=== PATIENT | male | born 1975 | race Caucasian/White ===

== ENCOUNTER 2016-08-23 23:46 | Emergency (ER) | payer SELFPAY ==
[~2016-08-23] VITALS: Ht 182.9 cm; Wt 99.3 kg
[2016-08-24] MEDS ORDERED: ONDANSETRON 2MG/ML, 2ML ONE (01:13)
[2016-08-24] MEDS ORDERED: KETOROLAC 30 MG/1 ML ONE (01:13)
[2016-08-24] MEDS ORDERED: MORPHINE SULFATE 4 MG/ML, 1ML ONE ×3 (01:13→02:40)
[2016-08-24] MEDS: MORPHINE SULFATE 4 MG/ML, 1ML IVPush PRN ×2 (01:20→02:04)
[2016-08-24] MEDS ORDERED: GABA300C PO (01:27)
[2016-08-24] MEDS ORDERED: ALPR0.25 PO (01:27)
[2016-08-24] MEDS ORDERED: ACET-709 PO (01:27)
[2016-08-24] MEDS ORDERED: VENL150C PO (01:27)
[2016-08-24] MEDS ORDERED: SODIUM CHLORIDE 0.9% 1,000ML IVBOLUS ONE (01:30)
[2016-08-24] MEDS ORDERED: SODIUM CHLORIDE FLUSH 10ML SYR IVF ONE (01:30)
[2016-08-24] MEDS ORDERED: KETOROLAC 30 MG/1 ML IVPush ONE (01:30)
[2016-08-24] MEDS ORDERED: ONDANSETRON 2MG/ML, 2ML IVPush ONE (01:30)
[2016-08-24 02:47] LABS: BLOOD UREA NITROGEN 12 mg/dL (7-18)
[2016-08-24 02:52] LABS: ASPARTATE AMINO TRANSFERASE 39 U/L (15-37)
[2016-08-24] MEDS ORDERED: MORPHINE SULFATE 4 MG/ML, 1ML IVPush ONE (03:00)
[2016-08-24] MEDS ORDERED: MAALOX/HYOSCYAMINE/LIDOCAINE 45 ML BOTTLE ONE (03:22)
[2016-08-24] MEDS ORDERED: MAALOX/HYOSCYAMINE/LIDOCAINE 45 ML BOTTLE PO ONE (03:30)
[2016-08-24 03:41] VITALS: BP 153/78
== END 2016-08-24 03:43 | disposition home or self-care (01) ==
LOC: ED 08-24 03:37
DX: N20.1 Calculus of ureter (principal)
CPT/HCPCS: 36415; 76770; 80053; 81001; 85025; 96361; 96374; 96375; 96376; 99285; J1885; J2405; J7030